=== PATIENT | male | born 1970 | race Caucasian/White ===

== ENCOUNTER 2018-09-05 20:20 | Inpatient (IN) | payer MEDICARE, MEDICAID ==
[~2018-09-05] VITALS: Ht 170.2 cm; Wt 99.8 kg
[2018-09-05] MEDS ORDERED: SERT100T12 PO (22:29)
[2018-09-05] MEDS ORDERED: QUET300T2 PO (22:29)
[2018-09-05 22:42] LABS: EOSINOPHILS % (AUTO) 0.6 % (1.0-6.0); HEMATOCRIT 39.1 % (41-53); LYMPHOCYTES # (AUTO) 1.4 K/uL (1.0-4.8); LYMPHOCYTES % (AUTO) 15.8 % (22.0-44.0); MEAN CORPUSCULAR HGB CONC 33.4 G/dL (31.0-37.0); MEAN CORPUSCULAR VOLUME 84 fL (80-100); MONOCYTES # (AUTO) 0.8 K/uL (0.1-1.0); MONOCYTES % (AUTO) 8.8 % (2.0-9.0); NEUTROPHILS # (AUTO) 6.6 K/uL (1.8-7.7); NEUTROPHILS % (AUTO) 73.8 % (40.0-70.0); PLATELET COUNT (AUTO) 298 K/uL (150-450); RED BLOOD CELL COUNT(AUTO) 4.66 MIL/uL (4.50-5.90); RED CELL DISTRIBUTION WIDTH 15.9 % (11.5-14.5)
[2018-09-05 22:50] LABS: ANION GAP 11 mmol/L (8-16); CALCIUM, TOTAL 9.6 mg/dL (8.8-10.5); CARBON DIOXIDE 27 mmol/L (22-29); CHLORIDE 102 mmol/L (98-107); CREATININE 0.95 mg/dL (0.60-1.30); GLOMERULAR FILTR. RATE CALC > 60 mL/min (>60); GLUCOSE,RANDOM 90 mg/dL (70-110); POTASSIUM 3.9 mmol/L (3.5-5.1); SODIUM SERUM 140 mmol/L (136-145); UREA NITROGEN, BLOOD 13 mg/dL (7-18)
[2018-09-05 23:05] LABS: ALANINE AMINOTRANSFERASE 48 U/L (12-78); ALBUMIN 3.9 g/dL (3.4-5.0); ALKALINE PHOSPHATASE 91 U/L (46-116); ASPARTATE AMINOTRANSFERASE 20 U/L (15-37); BILIRUBIN,TOTAL 0.3 mg/dL (0.1-1.0); TOTAL PROTEIN, SERUM 8.2 g/dL (6.4-8.2)
[2018-09-05 23:20] LABS: AMPHET/METH SCREEN,URINE NEGATIVE (NEGATIVE); BARBITURATE SCREEN, URINE NEGATIVE (NEGATIVE); BENZODIAZEPINES SCREEN,URINE NEGATIVE (NEGATIVE); CANNABINOID SCREEN,URINE NEGATIVE (NEGATIVE); COCAINE SCREEN,URINE NEGATIVE (NEGATIVE); METHADONE SCREEN, URINE NEGATIVE (NEGATIVE); OPIATE SCREEN,URINE NEGATIVE (NEGATIVE)
[2018-09-05 23:21] LABS: PHENCYCLIDINE SCREEN,URINE NEGATIVE (NEGATIVE)
[2018-09-06] MEDS ORDERED: MAG HYDROX/AL HYDROX/SIMETH ES 30 ML SUSPENSION UDCUP PO ONE
[2018-09-06] MEDS ORDERED: ACETAMINOPHEN 500 MG TABLET PO ONE
[2018-09-06] MEDS ORDERED: HALOPERIDOL 5 MG TABLET PO PRN ×2 (03:15→20:15)
[2018-09-06] MEDS: ZOLPIDEM TARTRATE 10 MG TABLET PO PRN ×2 (03:29→21:22)
[2018-09-06 19:48] VITALS: BP 140/81
[2018-09-07] VITALS: BP 120/82
[2018-09-07] MEDS: LORazepam 2 MG TABLET PO PRN ×2 (00:02→09:33)
[2018-09-07 08:49] VITALS: BP 103/68
[2018-09-07 09:10] LABS: CHOL/HDL RATIO 4.6 (4.2-7.3)
[2018-09-07] MEDS: QUEtiapine FUMARATE 300 MG TABLET PO SCH ×2 (13:02→20:24)
[2018-09-07] MEDS: SERTRALINE HCL 100 MG TABLET PO SCH (13:02)
[2018-09-07 16:12] VITALS: BP 110/68
[2018-09-07] MEDS: ZOLPIDEM TARTRATE 10 MG TABLET PO PRN (20:55)
[2018-09-08 00:13] VITALS: BP 111/69
[2018-09-08] MEDS: QUEtiapine FUMARATE 300 MG TABLET PO SCH ×2 (08:54→20:18)
[2018-09-08] MEDS: LORazepam 2 MG TABLET PO PRN (08:54)
[2018-09-08] MEDS: SERTRALINE HCL 100 MG TABLET PO SCH (08:54)
[2018-09-08 09:37] VITALS: BP 120/77
[2018-09-08 16:48] VITALS: BP 120/75
[2018-09-09 00:15] VITALS: BP 98/64
[2018-09-09] MEDS: LORazepam 2 MG TABLET PO PRN ×2 (08:16→17:00)
[2018-09-09] MEDS: SERTRALINE HCL 100 MG TABLET PO SCH (08:16)
[2018-09-09] MEDS: QUEtiapine FUMARATE 300 MG TABLET PO SCH ×2 (08:16→21:25)
[2018-09-09 09:01] VITALS: BP 130/92
[2018-09-09 09:19] VITALS: BP 130/92
[2018-09-09 16:18] VITALS: BP 100/60
[2018-09-09] MEDS ORDERED: BISACODYL 5 MG EC TABLET PO PRN (16:30)
[2018-09-09] MEDS: ZOLPIDEM TARTRATE 10 MG TABLET PO PRN (21:25)
[2018-09-10 06:02] VITALS: BP 109/77
[2018-09-10 08:00] VITALS: BP 122/88
[2018-09-10] MEDS: SERTRALINE HCL 100 MG TABLET PO SCH (09:02)
[2018-09-10] MEDS: QUEtiapine FUMARATE 300 MG TABLET PO SCH (09:02)
== END 2018-09-10 14:00 | disposition home or self-care (01) | DRG 885 ==
LOC: EMS 20:23 → B3A 09-06 16:32 → B2S 09-06 17:52
PROVIDERS: ADMIT Psychiatry & Neurology Psychiatry; ATTEND Psychiatry & Neurology Psychiatry
DX: F31.5 Bipolar disorder, current episode depressed, severe, with psychotic features (principal); R45.851 Suicidal ideations; D64.9 Anemia, unspecified; E78.5 Hyperlipidemia, unspecified; F31.9 Bipolar disorder, unspecified; J44.9 Chronic obstructive pulmonary disease, unspecified; K21.9 Gastro-esophageal reflux disease without esophagitis; K29.70 Gastritis, unspecified, without bleeding; K59.00 Constipation, unspecified; Z98.84 Bariatric surgery status; Z88.8 Allergy status to other drugs, medicaments and biological substances
CPT/HCPCS: G0480